=== PATIENT | female | born 1990 ===

== ENCOUNTER 2017-07-22 22:51 | Emergency (ER) | payer SELFPAY ==
--- NOTE | 2017-07-23 00:24 | OBHP ---
Datetime: 07/23/2017 00:08 IP Adm Impression: , intrauterine ; Intact Membranes IP Admit Plan: Discharge home Admit Comment, IP Provider: 26 y.o. , LMP 12/22/16, revised CLARA 10/11/17, EGA 28w 3d S/P fal l at 1900 hours, while walking on the street, slipped on a little puddle of water. Hit her lower back /coccyx; no abdominal trauma. (+) AFM; denies LOF VB, abdominal pain/pressure. care: [facility]; no issues to date P Ob: x , 2012, female, 9lb 8oz, no GDM. [place]. 2008, spont ab, 3 months, with D_C; no complications P [employer]: 12 x monthly x 5 PMH: denies PSH: D_C NKDA Meds: PNV - QD Soc Hx: denies tobacco, illicit drug or EtOH use. 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 Fam Hx: Mother alive 53 y.o. Father alive 55 y.o.; both, no med issues. PGM - breast ca ncer P.E.: as above. WD in NAD. Awake, alert, oriented to time, person and place Assessment: 26 y.o. P1011, 28w 3d, S/P fall on back; no direct abdominal trauma. Category 1 traaci ng. Advised to applly cold compress BID; take motrin 400 mg p.o every 6 hours, as needed, max 3 days. Rest. Patient expressed an understanding and agrees. Clinically stable. Plan: 1) Discharge home 2) Rx: Motrin 400 mg p.o. Q 6 hr, PRN 3) Reviewed S/S PTL 4) Keep appointment, 08/03/17 Pelvic Type - PN: Adequate Extremities - PN: Normal Abdomen - PN: Normal Back - PN: Normal Breast - PN: Not Done Lungs - PN: Normal Heart - PN: Normal Thyroid - PN: Not Done Neurologic - PN: Normal HEENT - PN: Normal General - PN: Normal FHR - Baseline A Provider: 135 Contraction Comments Provider: none Comments, ACOG Physical Exam: Back: no CVA tenderness. No bruises Abdomen: Obese. Soft. Gravid All other systems reviewed and are negative Gestation - Est Wks by US: 28 w 4d EGA AdmitDate IP: 28.3 Vital Signs Provider: Reviewed IP Chief Complaint: Trauma/Fall NICHD Variability Prov Fetus A: Moderate 6-25bpm NICHD Accel Fetus A IP Provider: 10X10 FHR Category Provider Fetus A: Category I NICHD Decel Fetus A IP Provider: None Dilatation, Provider: 0 Effacement, Provider: 0 Station, Provider: n/a Genitourinary Exam: Normal DTRs - PN: Not Done
[2017-07-23 04:31] VITALS: BP 110/68; PULSE 86; RESP 18; TEMP 97.4; O2SAT 99
== END 2017-07-23 00:25 | disposition home or self-care (01) ==
LOC: C.EROB 22:51
DX: Z04.3 Encounter for examination and observation following other accident (principal)

== ENCOUNTER 2017-10-08 05:20 | Inpatient (IN) | payer SELFPAY ==
[2017-10-08] MEDS: Lactated Ringer's 1,000 ML IV SCH ×2 (05:45→22:18)
[2017-10-08 06:03] VITALS: BMI 38.0
[2017-10-08 06:39] LABS: BASO % 0.1 % (0.0-2.0); EOS # 0.1 K/uL (0.0-0.7); EOS % 0.9 % (0.0-4.0); HEMATOCRIT 32.1 % (34.0-47.0); LYMPH # 1.9 K/uL (1.0-4.3); LYMPH % 25.3 % (20.0-40.0); MEAN CELL VOLUME 78.7 fL (81.0-99.0); MEAN CORPUSCULAR HEMOGLOBIN 25.8 pg (27.0-31.0); MEAN CORPUSCULAR HGB CONC 32.7 g/dL (33.0-37.0); MEAN PLATELET VOLUME 7.5 fL (7.2-11.7); MONO # 0.6 K/uL (0.0-0.8); MONO % 8.5 % (0.0-10.0); NRBC % 0.2 % (0.0-2.0); RED CELL DISTRIBUTION WIDTH 16.4 % (11.5-14.5); WHITE BLOOD COUNT 7.4 K/uL (4.8-10.8)
[2017-10-08 06:47] LABS: RBC URINE 1144 /hpf (0-3); URINE BILIRUBIN NEGATIVE (NEGATIVE); URINE BLOOD 3+ (NEGATIVE); URINE COLOR Amber (YELLOW); URINE GLUCOSE (UA) NORMAL (Normal); URINE KETONE TRACE mg/dL (NEGATIVE); URINE LEUKOCYTE ESTERASE 2+ Leu/uL (Negative); URINE PROTEIN 2+ mg/dL (NEGATIVE); WBC URINE 48 /hpf (0-5)
[2017-10-08 06:51] LABS: BLOOD UREA NITROGEN 7 mg/dL (7-17); CARBON DIOXIDE 20 mmol/L (22-30); CHLORIDE 106 mmol/L (98-107); GFR AFRICAN-AMERICAN > 60; GLUCOSE,RANDOM 84 mg/dL (65-105); POTASSIUM 3.5 mmol/L (3.6-5.2); SODIUM 135 mmol/L (132-148); TOTAL PROTEIN 7.1 g/dL (6.3-8.3)
[2017-10-08 06:53] LABS: ALKALINE PHOSPHATASE 157 U/L (38-126); ALT/SGPT 64 U/L (9-52); AST/SGOT 37 U/L (14-36); BILIRUBIN,TOTAL 0.6 mg/dL (0.2-1.3); CALCIUM 8.3 mg/dl (8.6-10.4)
[2017-10-08 06:54] LABS: ALB/GLOB RATIO 0.9 (1.0-2.1)
[2017-10-08] MEDS ORDERED: Sodium Citrate/Citric Acid 15 ml Sol ONE (08:37)
[2017-10-08] MEDS ORDERED: cefOXitin IV 2 gm in Dextrose 2 GM/50 ML BAG IVPB ONE (08:37)
[2017-10-08] MEDS ORDERED: Oxytocin 20 units in LR 2,000 ML IV ONE (08:38)
[2017-10-08] MEDS ORDERED: Morphine 1 mg/ml preservative-free Inj(Duramorph) ONE (08:44)
--- NOTE | 2017-10-08 08:55 | PCM.SURG1 ---
Surgeon's Initial Post Op Note - Surgeon's Notes Surgeon: dr quinteros Supervising Editor News Reel: dr pike Type of Anesthesia: General LMA, Spinal Anesthesia Administered By: dr hodgson Pre-Operative Diagnosis: 27yr at 39+weeks lga Operative Findings: see the op report Post-Operative Diagnosis: same with left ovarian complex mas Operation Performed: primary cesaren section/left ovarian cystectomy Specimen/Specimens Removed: cord gas. cord blood. left ovarian cyst Estimated Blood Loss: EBL {In ML}: 800 Blood Products Given: N/A Drains Used: No Drains Post-Op Condition: Good Date of Surgery/Procedure: 10/08/17 Time of Surgery/Procedure: 11:00
[2017-10-08] MEDS ORDERED: Oxytocin 10 Units/ml Inj ONE (09:17)
--- NOTE | 2017-10-08 10:02 | OBDS ---
DELIVERY PERSONNEL Nurse Licensed Midwife Certified: N/A Delivery Doctor: Prem Betancourt MD Scrub Nurse: Angela Quezada OBT Equipment Planner: Ruthie Urbano RN _ Aimee Hightower RN Resident: Cristal Jones DO, PGY 1 MATERNAL INFORMATION Delivery Anesthesia: Spinal Estimated Blood Loss (ml): 800 Maternal Complications: None RN Comments: Digital Solution Architect = Dr. Wray Provider Comments: baby deliverd in [place]. left ovarian cyst 4-5 cm, complex. left ovarian cytectomy. dermoid. umco plicated c/s. 9/9 10.6 LABOR SUMMARY EDC: 10/11/2017 00:00 No. Babies in Womb: 1 Attempted: No LABOR INFORMATION Reason for Induction: Not Applicable Group B Beta Strep: Positive Antibiotics # of Doses: N/A Antibiotics Time of Last Dose: N/A Steroids Given: None Reason Steroids Not Administered: Not Applicable STAGES OF LABOR Stage 3 hrs: 0 Stage 3 min: 1 VAGINAL DELIVERY Episiotomy: None CSECTION DELIVERY Primary Indication: Other Other Primary Indication: LGA CSection Urgency: Elective CSection Incidence: Primary Labor: N/A Elective: Elective CSection Incision: Lower Uterine Transverse BABY A INFORMATION Delivery Date/Time: 10/08/2017 09:18 Method of Delivery: Born in Route : No : N/A Forceps: N/A Vacuum Extraction: N/A Shoulder Dystocia : No SHOULDER DYSTOCIA BABY A Delivery Date/Time: 10/08/2017 09:18 PRESENTATION/POSITION BABY A Presentation: Cephalic Cephalic Presentation: Vertex Vertex Position: Left Occipital Anterior Breech Presentation: N/A PLACENTA INFORMATION BABY A Placenta Delivery Time : 10/08/2017 09:19 Placenta Method of Delivery: Manual Removal Placenta Status: Delivered SCORES BABY A Heart Rate 1 min: >100 bpm Resp Effort 1 min: Good Cry Reflex Irritability 1 min: Cough or Sneeze or Pulls Away Muscle Tone 1 min: Active Motion Color 1 min: Body [place], Extremities Blue Resuscitation Effort 1 min: Tactile Stimulation SCORE 1 MIN: 9 Resp Effort 5 min: Good Cry Reflex Irritability 5 min: Cough or Sneeze or Pulls Away Muscle Tone 5 min: Active Motion Color 5 min: Body [place], Extremities Blue Resuscitation Effort 5 min: N/A; Tactile Stimulation INFANT INFORMATION BABY A Gestational Status: Term Infant Outcome : Liveborn Condition : Stable Sex: Female IDENTIFICATION/MEDS BABY A ID Band Number: [id number] Sensor Number: [id number] WEIGHT/LENGTH BABY A Infant Birthweight (gms): 4700 Weight (lb): 10 Weight (oz): 6 Length Inches: 19.00 Length cms: 48.3 CORD INFORMATION BABY A No. Cord Vessels: 3 Nuchal Cord : N/A Cord Blood Taken: Yes Infant Suction: Mouth; Nose
[2017-10-08] MEDS ORDERED: DiphenhydrAMINE 50 mg/ml Inj IVP PRN (10:18)
[2017-10-08] MEDS ORDERED: HYDROmorphone 0.5 mg/0.5 ml ISec IVP PRN (10:20)
[2017-10-08 11:52] LABS: URIC ACID 4.1 mg/dL (2.2-7.5)
[2017-10-08 11:54] LABS: INR 0.9
[2017-10-08] MEDS: Simethicone 80 mg Chewtab PO SCH ×3 (14:10→22:17)
[2017-10-09] MEDS: Oxycodone/Acetaminophen 5/325 mg Tab PO PRN ×3 (05:30→13:39)
--- NOTE | 2017-10-09 06:15 | OP ---
PROCEDURE DATE: 10/08/2017 PREOPERATIVE DIAGNOSIS: A 27-year-old 1, para 0, at 39+ weeks with large for gestational age, for primary section. POSTOPERATIVE DIAGNOSIS: Large for gestation with left ovarian complex cyst. PROCEDURE PERFORMED: Primary section and left ovarian cystectomy. SURGEON: Prem Betancourt MD FLUORESCENT LIGHTING MODEL MAKER: Lucho Wray, who was present throughout the procedure with retraction and pushing at the time of the delivery and helping with the cystectomy. ANESTHESIA: Spinal. ANESTHESIOLOGIST: Dr. Mora. COMPLICATIONS: None. ESTIMATED BLOOD LOSS: 800 mL. DESCRIPTION OF PROCEDURE: After informed consent was obtained, the patient was brought to the operating room, placed on the table where spinal anesthesia was given. Once the anesthesia was given, the patient was prepped and draped in the normal sterile fashion. 2 cm above the pubic bone, a skin incision made with the knife, the subcutaneous cut with the Bovie. The fascia was then excised on both the sides using curved Nunez scissors. The fascia was from the site of the pubic bone and at the side of the umbilicus and then at the site of the rectus muscle. Peritoneum was incised and we went into the abdominal cavity, bladder blade was placed and bladder flap was created. Lower uterine segment incision was made bluntly. Baby delivered in MARLEY position. Cord was clamped and cut. Baby handed to the awaiting dry cleaner hand. Cord gas was sent. Placenta delivered manually and sent to the Pathology. Uterine gutters were cleared of all clots and debris. Uterine incision was closed using 1-0 Vicryl running interlocking fashion, second layer was closed with the same stitch. When the ovaries were looked, there was a left ovary about 5 cm complex cyst through which pus was coming, so decision was made to do left ovarian cystectomy. Two Radha's were placed. Part of the cyst was cut with the knife, it was sent to the Pathology. Then a lot of irrigation was done and it was closed with interrupted sutures of 2-0 chromic, it was not bleeding after that. Right ovary look-yoder was normal. *------* normal. Uterus was returned back to the abdominal cavity. Gutters were cleared of all the clots and debris. The uterine incision was closed in layers. Then the peritoneum was closed with 1-0 Vicryl in nonlocking fashion. Muscles were closed with 1-0 Vicryl in a nonlocking fashion. Fascia was closed with 1-0 Vicryl in nonlocking fashion. Subcutaneous was closed *------* interrupted fashion. Skin was closed using triny. The patient tolerated the procedure well. Lap, sponge, and instrument counts were correct x2. Prem Betancourt MD
[2017-10-09 07:38] LABS: BASO % 0.2 % (0.0-2.0); EOS % 0.1 % (0.0-4.0); HEMATOCRIT 30.2 % (34.0-47.0); LYMPH # 1.1 K/uL (1.0-4.3); LYMPH % 10.8 % (20.0-40.0); MEAN CELL VOLUME 77.9 fL (81.0-99.0); MEAN CORPUSCULAR HGB CONC 33.4 g/dL (33.0-37.0); MEAN PLATELET VOLUME 7.4 fL (7.2-11.7); MONO # 0.9 K/uL (0.0-0.8); MONO % 8.5 % (0.0-10.0); NRBC % 0.1 % (0.0-2.0); RED CELL DISTRIBUTION WIDTH 16.7 % (11.5-14.5); WHITE BLOOD COUNT 10.6 K/uL (4.8-10.8)
[2017-10-09] MEDS ORDERED: Bisacodyl 5mg EC Tab PO ONE (08:52)
[2017-10-09] MEDS: Simethicone 80 mg Chewtab PO SCH ×5 (09:00→22:24)
--- NOTE | 2017-10-09 11:42 | OBPPN ---
Datetime: 10/09/2017 08:43 PP Pain Prov: Within normal limits PP Nausea Prov: Denies PP Flatus Prov: No PP BM Prov: No PP Impression Prov: Normal progression PP Plan Prov: Continue present management PP Progress Note Prov: Patient seen and examined at bedside. Per nursing no acute events overnight. Patient is doing well, pain is controlled. Patient is out of bed to chair. Genao out this morning. Lo donato is mild. Tolerating diet. Denies passing flatus or BM. Has not urinated yet. Breast and bottle f eeding. Denies headaches, dizziness, cp, palpitations, sob. VS: 121/68 104 98.4 I/O: 3000/1500 Gen: AAOx3 CV: RRR Lungs: CTA B/L Abdomen: soft, appropriately tender, incision c/d/i with triny, fundus firm at umbilicus Ext: No clubbing, cyanosis, edema; no calf tenderness Labs: 7.4>10.5/32.1<341 10.6>10.1/30.2<326 B positive Rubella immune A/P: 27 year old at 39w4d s/p PLTCD 2/2 macrosomia POD#1 -Stable, afebrile -Pain control with percocet and motrin prn -F/U am CBC -Genao out, f/u voiding trial -Advance diet as tolerated -Encourage ambulation and hydration -Encourage breast feeding and incentive spirometer use -Continue routine care -Plan discussed with attending Cristal Jones DO PGY-1 Attending Note: Patient was seen, evaluated and examined by me with the Resident. Patient has sin ce voided spontaneously. Continue management as above. Vital Signs Provider PP: Reviewed
--- NOTE | 2017-10-10 07:38 | OBPPN ---
Datetime: 10/10/2017 07:35 PP Pain Prov: Within normal limits PP Nausea Prov: Denies PP Flatus Prov: Yes PP Abdomen/Uterus Prov: Normal PP Lochia Prov: Normal PP Extremities Prov: Normal PP C/S Incision Prov: Normal PP Comments Phys Exam Prov: fudus below umb ext mild edema,no calf ten incision clean and dry PP Impression Prov: Normal progression PP Plan Prov: Continue present management PP Progress Note Prov: pt was seen at bed side, pain under control,no n/v, tolerating deit, voiding, min lochia, flatus + pod#2s/p c/s cont post op care cont pain managem encourage ambulation Vital Signs Provider PP: Reviewed; Within Normal Limits
[2017-10-10 08:35] VITALS: RESP 18
[2017-10-10] MEDS: Simethicone 80 mg Chewtab PO SCH ×4 (09:12→22:49)
[2017-10-10] MEDS: Oxycodone/Acetaminophen 5/325 mg Tab PO PRN ×2 (09:13→17:16)
[2017-10-11] MEDS: Oxycodone/Acetaminophen 5/325 mg Tab PO PRN (01:13)
--- NOTE | 2017-10-11 08:21 | OBDCSUM ---
Datetime: 10/11/2017 08:18 Discharged to, Provider: Home Follow up at, Provider: /wednesday Discharge Diagnosis, Provider: Term Delivered Follow up in weeks, Provider: clinic Disch Activity Restrictions: No exercising; No driving; Minimize walking; Minimize stair-climbing; N o sexual activity; Nothing in vagina - [place], tampons, douche Discharge Comment, Provider: [place] home no sex percocet, prn f/u on or riday for triny removal
--- NOTE | 2017-10-11 08:21 | OBPPN ---
Datetime: 10/11/2017 08:16 PP Pain Prov: Within normal limits PP Nausea Prov: Denies PP Flatus Prov: Yes PP BM Prov: Yes PP Abdomen/Uterus Prov: Normal PP Lochia Prov: Normal PP Extremities Prov: Normal PP C/S Incision Prov: Normal PP Comments Phys Exam Prov: fudus below umblicus ext no edema,no calf ten incision clean and dry PP Impression Prov: Normal progression PP Plan Prov: Continue present management PP Progress Note Prov: pt was seen at bed side pain under control,no n/v, tolerating ,min lochaia, f ;latus + pod#3 s/p c/s dc home no sex percocet, prn f/u on or riday for triny removal Vital Signs Provider PP: Reviewed; Within Normal Limits
[2017-10-11] MEDS ORDERED: Oxycodone/Acetaminophen 5/325 mg Tab PO STA (09:09)
[2017-10-11 09:19] VITALS: BP 120/83; PULSE 84; TEMP 98.4; O2SAT 98
[2017-10-11] MEDS ORDERED: Influenza Vaccine 60 mcg/0.5 mL SYR (4YR UP) IM ONE (10:00)
[2017-10-11] MEDS: Simethicone 80 mg Chewtab PO SCH (10:06)
== END 2017-10-11 12:00 | disposition home or self-care (01) | DRG 766 ==
LOC: C.EROB 05:20 → C.4D 05:35 → C.4M 12:45
PROVIDERS: ADMIT Student in an Organized Health Care Education/Training Program; ATTEND Student in an Organized Health Care Education/Training Program
PROC: 10D00Z1 Extraction of Products of Conception, Low, Open Approach (ICD-10-PCS; principal; 2017-10-08)
PROC: 0UB10ZZ Excision of Left Ovary, Open Approach (ICD-10-PCS; 2017-10-08)
DX: O36.63X0 Maternal care for excessive fetal growth, third trimester, not applicable or unspecified (principal); N83.202 Unspecified ovarian cyst, left side; O34.83 Maternal care for other abnormalities of pelvic organs, third trimester; O99.824 Streptococcus B carrier state complicating childbirth; Z37.0 Single live birth; Z3A.39 39 weeks gestation of pregnancy